=== PATIENT | male | born 1955 | race Caucasian/White ===

== ENCOUNTER 2019-08-22 08:58 | Day surgery (SDC) | payer MEDICARE, BC, SELFPAY ==
[2019-08-22] VITALS (11 sets, daily range): BP systolic 121–173; BP diastolic 61–88; PULSE 68–100; RESP 14–17; TEMP 36–36.8; O2SAT 92–100; BMI 27.3
--- NOTE | 2019-08-22 | IMM_PTH ---
PATIENT: JOSE ALVARADO LOC: [facility] [place] U#:[id number] AGE/SX: 63/M ROOM: RE08/22/[address]: Dr. Baron Vasquez MD : 1955 BED: DIS: 08/23/2019 SPEC #: [id number] RECD: 08/24/19 10:22 STATUS: YESSICA REKen #: [id number] BEATRIZ: 08/22/19 00:[address]: Baron Vasquez DEPT: IMMUNOHISTOCHEMISTRY RECD BY: Josefina Joaquin ENTERED: 08/24/19 10:22 SP TYPE: IMMUNO OTHR DR: Dr. Reinaldo Go MD Tissues: B - PROSTATE BIOPSY Procedures: 34BE12 (add) P40 (add) 34BE12 (initial) PHYSICIAN & INSTITUTION [place] [address] SPECIMEN INFORMATION: Tissue Source: B - Prostate tissue, TUR Clinical Info: Benign prostatic hyperplasia; urinary retention Specimen Number: [id number] B1-3 CPT code: 40828, 32386 x5 METHODOLOGY: Deparaffinized sections of prefer/formalin-fixed tissue or PAP/DQ stained slides are incubated with monoclonal/polyclonal antibodies/oligonucleotide probes. Localization is made via biotin free immunoperoxidase method. Appropriate controls are performed and reacted as expected. Results on target cell population are indicated in the following table: RESULTS: ANTIBODY / CLONE RESULT Block B1 P40 (BC28) negative 34BE12 (34BE12) negative Block B2 P40 (BC28) negative 34BE12 (34BE12) negative Block B3 P40 (BC28) negative 34BE12 (34BE12) negative These tests were developed and their performance characteristics determined by [facility]. They may not have been cleared or approved by the U.S. Food and Drug Administration. The FDA has determined that such clearance or approval is not necessary. The above immunohistochemical/dualISH markers are ordered and reviewed by the Pathologist. INTERPRETATION: Prostate, transurethral resection: Adenocarcinoma. LOU:capo 08/27/19
--- NOTE | 2019-08-22 09:10 | RAD_ITS ---
STUDY: X-RAY CHEST REASON FOR EXAM: Male, 63 years old. PRE OP TODAY; -- H/O SMOKING TECHNIQUE: PA and lateral views of the chest. COMPARISON: None. FINDINGS: Scattered calcified granulomas. Hyperinflation. There is no demonstrated pleural abnormality. Normal size heart. Normal mediastinum and andrew. There is prominence of the pulmonary hilar arteries without peripheral pulmonary vascular congestion, suggesting pulmonary hypertension. There is atherosclerotic tortuosity of the aortic arch and descending thoracic aorta. There are diffuse degenerative changes of the visualized thoracic spine. Mild degree of the levoscoliosis. Normal visualized ribs, clavicles, and shoulders. There is no demonstrated abnormality of the visualized soft tissue structures of the upper abdomen. RAD/Chest PA and Lateral IMPRESSION: Hyperinflation. No acute abnormality is seen. Electronically Signed: Eliel Rodriguez, at 10:37 EDT , Service support ,
--- NOTE | 2019-08-22 09:32 | EKG12_ITS ---
Test Reason : PRE OP Blood Pressure : / mmHG Vent. Rate : 084 BPM Atrial Rate : 084 BPM P-R Int : 164 ms QRS Dur : 122 ms QT Int : 402 ms P-R-T Axes : 068 -67 049 degrees QTc Int : 475 ms Sinus rhythm with occasional Premature ventricular complexes and Fusion complexes Left axis deviation Abnormal ECG No previous ECGs available Confirmed by NURY DAVIS, LINA ([id number]), visual effects editor BERNADETTE REDD ([id number]) on 08/28/2019 2:28:09 PM Referred By: Baron Vasquez Confirmed By:LIAM ARRINGTON MD
[2019-08-22 09:51] LABS: Prothrombin Time Fingerstick 15.2 SEC (11.9-14.4)
[2019-08-22 09:57] LABS: Hematocrit 41.7 % (40-54); Hemoglobin 13.8 g/dL (13.0-16.5); Mean Corp Hgb Conc 33.1 g/dL (32-36); Mean Corpuscular Hgb 30.6 pg (27.0-32.0); Mean Corpuscular Volume 92.5 fL (80-94); Mean Platelet Vol. 9.6 fl (6.2-12.0); Platelet Count 230 K/mm3 (150-450); RBC Distribution Width SD 47.1 fl (35.1-43.9); Red Blood Count 4.51 M/mm3 (4.6-6.2); White Blood Count 12.3 K/mm3 (4.4-11.0)
[2019-08-22] MEDS: Lactated Ringers 1,000 ML 100 ML IV (10:02)
[2019-08-22 10:08] LABS: Anion Gap 5 (5-15); BUN 33 mg/dL (7-18); BUN/Creat Ratio 22.9 RATIO (10-20); Calcium,Total 9.2 mg/dL (8.5-10.1); Chloride 104 mmol/L (98-107); Creatinine, Serum 1.44 mg/dL (0.70-1.30); EST Glomerular Filtration Rate 52 mL/min (>60); Est Glom Filt Rate - Afr Amer 63 mL/min (>60); Estimated Creatinine Clearance 56.13 ml/min; Glucose 89 mg/dL (74-106); Potassium 4.8 mmol/L (3.5-5.1); Sodium Level 139 mmol/L (136-145)
--- NOTE | 2019-08-22 11:25 | PROSB_PTH ---
PATIENT: JOSE ALVARADO LOC: [facility] [place] U#:[id number] AGE/SX: 63/M ROOM: RE08/22/[address]: Dr. Baron Vasquez MD : 1955 BED: DIS: 08/23/2019 SPEC #: [id number] RECD: 08/23/19 07:40 STATUS: YESSICA RENZO #: [id number] BEATRIZ: 08/22/19 11:[address]: Baron Vasquez DEPT: SURGICAL PATHOLOGY RECD BY: Pierre Fierro ENTERED: 08/23/19 11:25 SP TYPE: PROST BX OTHR DR: Dr. Reinaldo Go MD Tissues: A - Prostate, NOS B - Prostate, NOS Procedures: Surgery Specimen Level IV HEADER OPERATION: Transurethral resection prostate with Olympus PRE-OP DIAGNOSIS: Benign prostatic hyperplasia; urinary retention TISSUE SUBMITTED: A - Finger-guided prostate biopsy, B - Prostate tissue MICROSCOPIC DIAGNOSIS A. Prostate, core biopsy: A piece of benign prostatic tissue, predominantly consists of stromal tissue. Negative for malignancy. B. Prostate, TUR: Prostatic adenocarcinoma. See cancer summary below. SJ:capo 08/24/19 PROSTATE CANCER (TUR) SUMMARY: Procedure - Transurethral resection prostate (TURP) Histologic type - acinar adenocarcinoma Histologic grade (Hawthorne Pattern) - Grade group 1 (Hugh score 3+3=6) Intraductal carcinoma - not identified Tumor Quantitation (TUR specimens): Proportion (%) of prostatic tissue involved by tumor - <1% Number of positive chips - 4 Total number of chips - ~40 Periprostatic fat invasion - not applicable Seminal vesicle invasion - not applicable Lymphvascular invasion - not identified Perineural invasion - not identified Additional pathologic findings - - benign prostatic hyperplasia, glandular and stromal type. - chronic inflammation. Treatment effect - not applicable The above summary is in compliance with [employer] [place] (CAP) Cancer Protocols Checklist and [place] Joint Committee on Cancer (AJCC), Staging Manual, 8th Ed. COMMENT Immunohistochemistry ([id number]) supports the above diagnosis. Case has been reviewed in consultation with Dr. Kramer who concurs with the above diagnosis. IDC:[email or web address] MICROSCOPIC DESCRIPTION Slides are reviewed. GROSS DESCRIPTION A - Received in fixative is one container labeled with the patient's name and designated finger-guided prostate biopsy. The specimen consists of one elongated fragment of light saavedra-white soft tissue measuring 1 cm in length and 0.1 cm in diameter. The specimen is totally submitted in one cassette. B - Received is one container labeled with the patient's name and designated prostate tissue. The specimen consists of multiple irregular fragments of pink-saavedra, rubbery, soft tissue that in aggregate weigh 4.2 gm and measure in aggregate 7 x 5 x 0.2 cm. The entire specimen is submitted in four cassettes. / AM:capo 08/23/19 TC:0 CPT: 19932 x2
[2019-08-22] MEDS: Cefazolin 2 GM in 0.9% Normal Saline 100 ML IV (11:32)
--- NOTE | 2019-08-22 11:33 | DCINST_ITS ---
Discharge Diet: Light diet - advance as tolerated Discharge Activity: Return to Normal Activity Return to work on:: 09/05/19September shower in (days): 1 Lifting Restrictions: no lifting. Call your doctor if your incision/area has: Sudden Increased Bleeding Call your doctor if you observe: Fever of 101 or Higher Suture Line Care: Avoid Pulling/Pushing, Avoid Pinching/Bending Allergies/Adverse Reactions: Allergies rhubarb Allergy (Verified 08/22/19 09:33) Rash Medications to take at Discharge Glucosam/Jude-Msm1/C/Vinny/Bosw [Osteo Bi-Flex Caplet] 1 ea PO DAILY 08/20/19 Mecobalamin [B12 Active] 1,000 mcg PO DAILY 08/20/19 Warfarin [Coumadin ([facility])] 5 mg PO MOWEFR 08/20/19 Warfarin [Coumadin ([facility])] 7.5 mg PO SUTUTHSA 08/20/19 Ciprofloxacin [Cipro] 500 mg PO BID #14 tab 08/22/19 Hydrocodone/Acetaminophen [[place] 5-325 Tablet] 1 each PO Q4H PRN PRN 5 Days #14 tablet 08/22/19 The following prescriptions were given: Ciprofloxacin [Cipro] 500 mg PO BID #14 tab Transmission Status: Pending to [facility] Hydrocodone/Acetaminophen [[place] 5-325 Tablet] 1 each PO Q4H PRN PRN 5 Days #14 tablet PRN Reason: Pain Score 1-10/10 Transmission Status: Sent to [facility] Primary Care Physician: Reinaldo Go [Primary Care Provider] - Test Results: Test results from this visit will be discussed in further detail at your follow- up appointment, if applicable. Please Follow Up With: Baron Vasquez MD When: in 2 weeks, please call to make an appointment.
--- NOTE | 2019-08-22 11:34 | PCM.HP.STD ---
Problem List (1) BPH with urinary obstruction Status: Acute (2) Urinary retention due to benign prostatic hyperplasia Status: Acute History of Present Illness Date of Admission: 08/22/19 Chief Complaint: Urinary retention elevated PSA bilateral hydronephrosis BPH and obstruction The patient is a 63 year old male who went to the emergency room with sudden onset of retention of urine he has a catheter in place. He was found to have bilateral hydronephrosis elevated renal function. We talked about options of management and he wants to proceed with surgery to alleviate his obstruction also the catheter is causing pain or discomfort on a daily basis would like to get rid of the catheter he understand that surgery may not guarantee he will be able to urinate he may need to do self intermittent catheterization and he is willing to learn this if necessary. Working to proceed with transurethral resection of the prostate also can do a biopsy to rule out cancer Past Medical History Allergies rhubarb Allergy (Verified 08/22/19 09:33) Rash Home Medications: Ambulatory Orders Medication Instructions Recorded Glucosam/Jude-Msm1/C/Vinny/Bosw 1 ea PO DAILY 08/20/19 [Osteo Bi-Flex Caplet] Mecobalamin [B12 Active] 1,000 mcg PO DAILY 08/20/19 Warfarin [Coumadin ([facility])] 5 mg PO MOWEFR 08/20/19 Warfarin [Coumadin ([facility])] 7.5 mg PO SUTUTHSA 08/20/19 Ciprofloxacin [Cipro] 500 mg PO BID #14 tab 08/22/19 Hydrocodone/Acetaminophen [[place] 1 each PO Q4H PRN PRN 5 Days #14 08/22/19 5-325 Tablet] tablet Smoking Status: Current every day smoker Tobacco Use: Cigarettes Review of Systems Constitutional: Denies: Chills, Fever, Weight Change HEENT: Denies: Head Aches, Sinus Congestion, Sinus Drainage Cardiovascular: Denies: Chest Pain, Palpitations Respiratory: Denies: Cough, Shortness of breath at rest, Sputum production Gastrointestinal: Denies: Abdominal Pain, Nausea, Vomiting Genitourinary: Denies: Dysuria Musculoskeletal: Denies: Joint Pain, Joint Tenderness Skin: Denies: Rash, Wounds Neurological: Denies: Numbness, Tingling, Focal weakness Psychiatric: Denies: Anxiety, Depression, Homicidal Ideations, Suicidal Ideations Hematologic/ Lymphatic: Denies: Easy Bruising, Easy Bleeding VTE Information - Inpt Only VTE Present on Admission: No VTE Mechan Device Prophylaxis: SCD's Patient Problems: Active and Suspected Problems BPH with urinary obstruction (Acute) Urinary retention due to benign prostatic hyperplasia (Acute) - Physical Exam Vitals/I&O's: Vital Signs Temp Pulse Resp BP Pulse Ox 97.4 F L 80 17 126/75 H 100 08/22/19 09:40 08/22/19 09:40 08/22/19 09:40 08/22/19 09:40 08/22/19 09:40 Oxygen Delivery Method Room Air Weight: 91.7 kg Body Mass Index (BMI) 27.3 General: Alert, Oriented x3, Cooperative HEENT: Atraumatic, PERRLA, EOMI, Normocephalic Neck: Supple, No JVD, Negative Carotid Bruits Lungs: Clear to auscultation, Normal air movement Cardiovascular: Regular rate, No murmurs Abdomen: Bowel Sounds Present, Soft, Non Tender Extremities: No edema, Capillary Refill Less than 3 Seconds Skin: No rashes, No breakdown Musculoskeletal: No Tenderness to Palpation of Joints or Extremities Neurological: Cranial nerves II-XII grossly intact Psych/Mental Status: Normal Affect, Appropriate Laboratory Results 08/22/19 09:40: POC PT 15.2 H, INR 1.20 08/22/19 09:48: WBC 12.3 H, RBC 4.51 L, Hgb 13.8, Hct 41.7, MCV 92.5, MCH 30.6, MCHC 33.1, RDW Std Deviation 47.1 H, RDW Coeff of Tina 14.0, Plt Count 230, MPV 9.6 08/22/19 09:48: Sodium 139, Potassium 4.8, Chloride 104, Carbon Dioxide 30.0, Anion Gap 5, BUN 33 H, Creatinine 1.44 H, Estim Creat Clear Calc 56.13, Est GFR (MDRD) Af Amer 63, Est GFR (MDRD) Non-Af 52 L, BUN/Creatinine Ratio 22.9 H, Glucose 89, Calcium 9.2 Current Medications Lactated Ringer's () 1,000 mls @ 100 mls/hr IV .Q10H JOANNA Last Admin: 08/22/19 10:02 Dose: 100 mls/hr Documented by: Assessment/Plan All Active Problems BPH with urinary obstruction (Acute) Urinary retention due to benign prostatic hyperplasia (Acute) 63-year-old male with obstruction of his bladder is got bilateral hydronephrosis we will proceed with a TURP prostate biopsy is concerned that he may have cancer. Understands is possible the surgery may not work he may have to use intermittent catheterization as an option in the long run. Essential Procedure Criteria Procedure Essential: Yes Criteria Note: On 08/07/2019 the [facility] ([facility]) Public Order signed by [facility] Director Esther Mc M.D., regarding the Management of Non-Essential Surgeries and Procedures for the purpose of preserving Personal Protective Equipment (PPE) and critical hospital capacity and resources within [place] went into effect as of 08/08/2019 at 5:00PM. According to the [facility] Public Order: This action will remain in full force and effect until the State of Emergency declared by the Governor no longer exists or the Director of the [facility] rescinds or modifies this Order.. This [facility] order stated all non-essential or elective surgeries and procedures that utilize PPE should be delayed unless there is undue risk to the current or future health of a patient. After reviewing the aforementioned [facility] Public Order and the patients clinical case, I have determined that the scheduled procedure meets the criteria to go forward. Risk to Patient if Procedure Delayed: Threat of permanent dysfunction of an extremity or organ system - Bladder dysfunction
--- NOTE | 2019-08-22 12:26 | PCM.OPRPT ---
Problem List (1) BPH with urinary obstruction Status: Acute (2) Urinary retention due to benign prostatic hyperplasia Status: Acute Report of Operation Date of Procedure: 08/22/19 Pre-Operative Diagnosis: BPH with obstruction urinary retention prostate nodule Post-Operative Diagnosis: Same Surgery/Procedure Performed:: Trans-urethral resection of the prostate, transrectal biopsy of the prostate. Description of Surgical Findings:: Patient is a male patient with a history of obstruction of the prostate with enlargement of the prostate, he also has bilateral hydronephrosis a prostate nodule on exam is concerned that he may have prostate cancer with obstruction he is failed medical therapy and is currently with a catheter desires to have intervention so he can resume normal urination.. On prior examination the prostate is enlarged. He has been found to have outlet obstruction causing significant symptoms. We discussed the options of management for his prostate condition including laser surgery, office-based procedures, observation, management with a catheter long-term. We talked about the outcomes potential side effects of these different management options with surgery we talked about the risk of bleeding from the prostate, risk risk of recurrent bleeding, we talked about the risk of retrograde ejaculation and possible sexual dysfunction with surgery. We also discussed the risk of anesthesia including pulmonary embolism, blood clots, cardiac complications pulmonary complications. All the patient's questions were answered and working to proceed with a transurethral resection of the prostate with a bipolar Olympus resectoscope. Patient was taken back to the operating room after smooth induction of anesthesia by the anesthesia team he was given IV antibiotics, and also had SCDs for DVT prophylaxis. He was put on the table supine in a comfortable position and underwent general anesthesia. The legs were then positioned in dorsolithotomy position in stirrups making sure that all pressure points were padded. The penis and testicles perineum and lower pelvis were then prepped and draped in the usual sterile fashion. I then performed a cystoscopy using a well-lubricated 21 Romanian rigid cystourethroscope to inspect the prostate and the bladder and identify the right and left ureteral orifices. I then went back into the prostate with a resectoscope with a derek and started the resection first at the median lobe if there was any median lobe present, and then I started resecting the right lobe of the prostate starting at the 6 o'clock position working away to the 7 o'clock position all the way up to the 12 o'clock position on the prostate wall working all the way back to the verumontanum in order to open up the channel. I then used electrocautery to obtain hemostasis on the prostate. I then turned to the right side of the prostate and continued with the resection starting the 6 o'clock position working away to the 12 o'clock position working all way back to the verumontanum. I then obtained hemostasis. All the resection prostate chips were then removed from the bladder using Ellik evacuator. I checked the bladder and the right and left ureteral orifice were patent and open and were uninjured after the procedure. I then inspected the apical tissue made sure that there is no obstructing or flapping tissue in the apex. I performed a flow test and the patient had a wide open flow. I looked back inside the bladder through the urethra there was no scar tissues or abnormalities along the course of the urethra no injuries or tears, the sphincter was intact and the patient had an open channel from the verumontanum all the way to the bladder neck with good hemostasis. I then placed a double glove on my hand and used a guide through the double glove and did a transrectal palpation of the prostate and then through the guide I did prostate biopsies which were sent off as specimen. I then placed a continuous 22fr [address] muñiz catheter within the bladder and started irrigation the urine was fairly clear with some light pink urine. Patient's anesthetic was reversed and he was taken back to the PACU in stable condition. Type of Anesthesia:: General Drains: 3 way muñiz - Admit VTE Documentation VTE Present on Admission: No VTE Mechan Device Prophylaxis: SCD's
[2019-08-22] MEDS: Ondansetron 4 MG/2 ML Vial IV (13:48)
[2019-08-22] MEDS: 0.9% Normal Saline 1,000 ML 75 ML IV (20:13)
[2019-08-22] MEDS: Ciprofloxacin 500 MG Tablet PO (22:46)
[2019-08-22] MEDS: Docusate Sodium 100 MG Capsule PO (22:46)
[2019-08-23] MEDS: Acetaminophen 325 MG Tablet PO (02:55)
[2019-08-23 09:41] VITALS: BP 124/70; PULSE 62; RESP 18; TEMP 36.9; O2SAT 94
[2019-08-23 09:42] VITALS: RESP 18
[2019-08-23] MEDS: 0.9% Normal Saline 1,000 ML 75 ML IV (09:58)
[2019-08-23] MEDS: Ciprofloxacin 500 MG Tablet PO (09:59)
[2019-08-23] MEDS: Pantoprazole Sodium 40 MG Tablet PO (09:59)
[2019-08-23] MEDS: Docusate Sodium 100 MG Capsule PO (09:59)
--- NOTE | 2019-08-23 12:43 | NURSING ---
pt states still unable to void states attempt x2. discussed fluid intake. discussed conversation to give pt 6hrs since time of muñiz removed to void then replace muñiz catheter (1600) pt up ad nava, gait steady. fresh icewater given. denies all further needs.
[2019-08-23 13:56] VITALS: BP 179/93; PULSE 70; RESP 18; TEMP 36.6; O2SAT 97
== END 2019-08-23 12:02 | disposition home or self-care (01) ==
LOC: SDC 09:03 → AC 09:06 → PCU 08-23 09:43
PROVIDERS: Anesthesiology; PCP Family Medicine; Referring Provider Urology; Visit Provider Urology
PROC: (CPT 52601; principal; 2019-08-22 11:15)
DX: N40.1 Benign prostatic hyperplasia with lower urinary tract symptoms (principal); N13.8 Other obstructive and reflux uropathy; Z86.718 Personal history of other venous thrombosis and embolism; K21.9 Gastro-esophageal reflux disease without esophagitis; Z79.01 Long term (current) use of anticoagulants; R33.8 Other retention of urine; N13.30 Unspecified hydronephrosis; F17.210 Nicotine dependence, cigarettes, uncomplicated; C61 Malignant neoplasm of prostate
CPT/HCPCS: 52601; 55700; 36416; 71046; 80048; 85027; 85610; 88305; 88341; 88342; 93005; 99251; 99406; J7030; J7120; G0463; J2405

== ENCOUNTER → 2019-12-03 10:04 | Outpatient (CLI) | payer MEDICARE, BC, SELFPAY ==
[2019-08-22 13:27] VITALS: BMI 27.3
[2019-12-03 10:53] LABS: PSA,Total- Diagnostic 0.43 ng/mL (0.0-4.0)
== END ==
PROVIDERS: PCP Family Medicine; Referring Provider Urology; Visit Provider Urology
DX: C61 Malignant neoplasm of prostate (principal)
CPT/HCPCS: 36415; 84153

== ENCOUNTER → 2020-12-11 10:46 | Outpatient (CLI) | payer MEDICARE, BC, SELFPAY ==
[2019-08-22 13:27] VITALS: BMI 27.3
== END ==
PROVIDERS: PCP Family Medicine; Referring Provider Urology; Visit Provider Urology
DX: R35.0 Frequency of micturition (principal)
CPT/HCPCS: 87086; 87088; 87186

== ENCOUNTER 2021-08-04 15:07 | Outpatient (CLI) | payer MEDICARE, BC, SELFPAY ==
--- NOTE | 2021-08-04 15:13 | CT_ITS ---
STUDY: LOW DOSE CT LUNG CANCER SCREENING REASON FOR EXAM: Male, 65 years old. History of tobacco dependency. RADIATION DOSAGE (If Supplied By Facility): CTDIvol = ( 2.39 ) mGy, DLP = ( 82.80 ) mGycm TECHNIQUE: No contrast was administered. Low dose technique was utilized (average mAS-38 and kVp 120). 1.25 mm axial source images with a slice interval of 1.25-mm were reconstructed in lung windows. 2.5 mm axial source images with a slice interval of 2.5-mm were reconstructed in lung windows. 5.0 mm axial source images with a slice interval of 5.0-mm were reconstructed in soft tissue windows. Nodule measured using lung windows on PACS and/or independent workstation with automated measurement of minimum and maximum diameter. Nodule measurement reported as average diameter rounded to the nearest whole number. Growth is defined as an increase ins size of greater than 1.5 mm. COMPARISON: Chest, 08/22/2019 NODULES: Nodule #: 1 Density: Solid Lung location: Right upper lobe: 0.2 cm from pleura Location in series: Series Number: 2 Image: 37 Size - D1 x D2 mm: 2 x 2 mm: 2 mm average diameter Margin: Smooth Shape: Round Calcification: No Fat: No Temporal comparison: None Nodule #: 2 Density: Solid Lung location: Right upper lobe: 0.2 cm from pleura Location in series: Series Number: 2 Image: 67 Size - D1 x D2 mm: 3 x 2 mm: 3 mm average diameter Margin: Smooth Shape: Oval Calcification: No Fat: No Temporal comparison: None Nodule #: 3 Density: Solid Lung location: Right upper lobe: 0.2 cm from pleura Location in series: Series Number: 2 Image: 77 Size - D1 x D2 mm: 3 x 1 mm: 2 mm average diameter Margin: Small Shape: Linear Calcification: No Fat: No Temporal comparison: None Nodule #: 4 Density: Solid Lung location: Right upper lobe: 2 cm from pleura Location in series: Series Number: 2 Image: 104 Size - D1 x D2 mm: 0.7 x 0.9 mm: 8 mm average diameter Margin: Irregular Shape: Round Calcification: Yes Fat: No Temporal comparison: Stable Nodule #: 5 Density: Solid Lung location: Right lower lobe: 2 mm cm from pleura Location in series: Series Number: 2 Image: 1:15 Size - D1 x D2 mm: 7 x 7 mm: 7 mm average diameter Margin: Lobulated Shape: Round Calcification: No Fat: No Temporal comparison: None Nodule #: 6 Density: Solid Lung location: Right lower lobe: 2.1 cm from pleura Location in series: Series Number: 2 Image: 132 Size - D1 x D2 mm: 15 x 10 mm: 13 mm average diameter Margin: Lobulated Shape: Oval Calcification: No Fat: No Temporal comparison: None Nodule #: 7 Density: Solid Lung location: Left lower lobe: 0.7 cm from pleura Location in series: Series Number: 2 Image: 155 Size - D1 x D2 mm: 4 x 3 mm: 4 mm average diameter Margin: Smooth Shape: Round Calcification: No Fat: No Temporal comparison: None Nodule #: 8 Density: Sono Lung location: Left lower lobe: 0.3 cm from pleura Location in series: Series Number: 2 Image: 155 Size - D1 x D2 mm: 3 x 2 mm: 3 mm average diameter Margin: Smooth Shape: Oval Calcification: No Fat: No Temporal comparison: None Nodule #: 9 Density: Solid Lung location: Left lower lobe: Pleural-based Location in series: Series Number: 2 Image: 186 Size - D1 x D2 mm: 4 x 4 mm: 4 mm average diameter Margin: Smooth Shape: Round Calcification: No Fat: No Temporal comparison: None Nodule #: 10 Density: Solid Lung location: Left lower lobe: Pleural based Location in series: Series Number: 2 Image: 188 Size - D1 x D2 mm: 6 x 2 mm: 4 mm average diameter Margin: Smooth Shape: Oval Calcification: No Fat: No Temporal comparison: None Total lung nodules (excluding granulomas): 9 Emphysema: There is diffuse emphysematous changes of lungs with scattered bulla abdomen linear scarring at the lung bases. Endobronchial lesion: None Aorta: Normal Coronary arteries: Minimal coronary artery calcifications. Heart: Normal Pulmonary artery: Normal Mediastinal nodes: No mediastinal lymphadenopathy. Calcified lymph nodes are seen in the right hilum. Other chest and abdominal findings: Degenerative changes of the thoracic spine. CT/Low Dose CT Lung Screening IMPRESSION: Lung-RADS category 4A - Screening at 3 months with LDCT or evaluation with PET/CT may be used. IMPORTANT NOTES FOR USE: ACR Lung-RADS Version 1.1 Assessment Categories Release Date: 2018 Category: Coded 0-4 bases on nodule(s) with highest degree of suspicion. Negative screen is defined as categories 1 and 2; a positive screen is defined as categories 3 and 4. Category 3 and 4A nodules that are unchanged on interval CT should be coded as category 2, and individuals returned to screening in 12 months. Category 4X: Category 3 or 4 nodules with additional imaging findings that increase the suspicion of lung cancer, such as spiculation, GGN that doubles in size in 1 year, enlarged lymph notes, etc. Category Modifiers: S (significant finding unrelated to lung cancer) Electronically Signed: Williams Sanches DO at 16:32 EDT Reading Location ID and State: [address] [place] [address] Tel [phone], Service support ,
== END 2021-08-04 23:59 | disposition home or self-care (01) ==
LOC: CT 15:11
PROVIDERS: PCP Family Medicine; Referring Provider Internal Medicine Critical Care Medicine; Visit Provider Internal Medicine Critical Care Medicine
DX: F17.211 Nicotine dependence, cigarettes, in remission (principal)
CPT/HCPCS: 71271

== ENCOUNTER 2021-08-05 08:19 | Outpatient (CLI) | payer MEDICARE, BC, SELFPAY ==
--- NOTE | 2021-08-05 14:03 | PFTCOMP ---
COMPLETE PULMONARY FUNCTION TEST INTERPRETATION Brief HPI: Patient is a 65 year old male, currently under the care of Dr. Go, who presents to [facility] for complete pulmonary function tests secondary to diagnosis of dyspnea. Respiratory therapist reports good effort and reproducible results. Interpretation: Forced expiration spirometry shows a severe large airways obstructive ventilatory defect with an FEV1 of 44% predicted. There is a significant bronchodilator response in FEV1 by strict ATS criteria. Spirograms are of good quality and plateau slowly, indicating slowly emptying areas of the lungs. The respiratory flow volume loop shows decreased expiratory flow rates at all lung volumes consistent with airway obstruction. Lung volumes by body plethysmography show a normal total lung capacity at 6.97 L, 99% predicted. All other lung volumes are within normal limits. Diffusion capacity by carbon monoxide is decreased at 61% predicted. The airway resistance is elevated. No previous pulmonary function tests were available for review. Impression: Partially reversible severe large airways obstructive ventilatory defect with a symmetric reduction diffusing capacity
== END 2021-08-05 23:59 | disposition home or self-care (01) ==
LOC: PSN 08:21
PROVIDERS: PCP Family Medicine; Referring Provider Internal Medicine Critical Care Medicine; Visit Provider Internal Medicine Critical Care Medicine
DX: R06.02 Shortness of breath (principal); F17.211 Nicotine dependence, cigarettes, in remission
CPT/HCPCS: 94060; 94726; 94729

== ENCOUNTER 2021-08-18 12:48 | Outpatient (CLI) | payer MEDICARE, BC, SELFPAY ==
[2021-08-18 13:00] VITALS: PULSE 72; PULSE 76; PULSE 81; PULSE 82; PULSE 84; PULSE 87; PULSE 90; PULSE 91; O2SAT 90; O2SAT 92; O2SAT 94; O2SAT 97; O2SAT 98
--- NOTE | 2021-08-18 14:53 | WT_ITS ---
PSN 6 Minute Walk Test 6 Minute Walk Test 6 Minute Walk Test: 6 Minute Walk Test PSN:6-Minute Walk Test Start: 08/18/21 13:08 Freq: Status: Active Protocol: [id number] Document 08/18/21 13:00 [facility] (Rec: 08/18/21 13:12 [facility] [id number]) 6 Minute Walk Test Date Performed 08/18/21 Time Performed 13:00 Height 6 ft Weight: 95.254 kg Weight in Pounds 210.[address]: Dr Go Assistive device used: None Pre-test Oxygen Delivery Method Room Air Pulse Ox (%) 98 Pulse Rate (60-100 beats/min) 72 Dyspnea Niyah Scale (0-10) 0.5 Exertion Niyah Scale (6-20) 6 1st minute Oxygen Delivery Method Room Air Pulse Ox (%) 94 Pulse Rate (60-100 beats/min) 81 2nd minute Oxygen Delivery Method Room Air Pulse Ox (%) 94 Pulse Rate (60-100 beats/min) 84 3rd minute Oxygen Delivery Method Room Air Pulse Ox (%) 92 Pulse Rate (60-100 beats/min) 82 4th minute Oxygen Delivery Method Room Air Pulse Ox (%) 92 Pulse Rate (60-100 beats/min) 87 5th minute Oxygen Delivery Method Room Air Pulse Ox (%) 90 Pulse Rate (60-100 beats/min) 91 6th minute Oxygen Delivery Method Room Air Pulse Ox (%) 90 Pulse Rate (60-100 beats/min) 90 Dyspnea Niyah Scale (0-10) 2 Exertion Niyah Scale (6-20) 11 Post-test Oxygen Delivery Method Room Air Pulse Ox (%) 97 Pulse Rate (60-100 beats/min) 76 Full Laps Walked 19 Partial Lap, Number of Tiles Walked 17 Total Distance Walked (ft) 1138 Interpretation Interpretation: The patient was noted to be 98% on room air at rest, but did desaturate as low as 90% with ambulation. Patient experienced no significant tachycardia. In total, the patient traveled 1138 feet over the course of 6 minutes on room air with no assist devices or breaks. These findings are consistent with a respiratory limitation exercise tolerance. Recommendations Recommendations: No supplemental oxygen is indicated at this time. However, patient will need to be followed closely given level of desaturation.
== END 2021-08-18 23:59 | disposition home or self-care (01) ==
LOC: PSN 12:48
PROVIDERS: PCP Family Medicine; Referring Provider Internal Medicine Critical Care Medicine; Visit Provider Internal Medicine Critical Care Medicine
DX: R06.02 Shortness of breath (principal); F17.211 Nicotine dependence, cigarettes, in remission
CPT/HCPCS: 94618

== ENCOUNTER → 2021-09-16 | Outpatient (CLI) | payer MEDICARE, BC, SELFPAY ==
--- NOTE | 2021-09-16 09:30 | PET_ITS ---
STUDY: WHOLE BODY PET/CT REASON FOR EXAM: Male, 65 years old. Lung nodule RADIATION DOSAGE (If Supplied By Facility): CTDIvol = ( 7.22 ) mGy, DLP = ( 668.03 ) mGycm. Individualized dose optimization techniques were used for this CT.? TECHNIQUE: Whole-body, multiplanar PET study performed after administration of 10.4 mCi of F-[address] FDG[address] obtained COMPARISON: None. FINDINGS: No suspicious PET activity identified to suspect a metabolically active process. Normal physiologic activity noted in the brain, salivary glands, heart, liver, spleen, GI and systems. The noncontrasted CT scan does not show evidence of abnormality in the visualized brain parenchyma. No suspicious adenopathy in the soft tissues of the neck. No airway narrowing or deviation. No suspicious axillary, mediastinal or perihilar adenopathy on tavares show chronic interstitial changes. There is a calcified granuloma in the right middle lobe and subtle nodular densities in the right lower lobe but none of them show significant PET activity. No suspicious solid organ abnormality, there are nonobstructing right renal stones. No suspicious mesenteric or retroperitoneal adenopathy. There is a right inguinal hernia containing bowel loops which extends down into the scrotum. Bony structures show degenerative change PET/PET/CT Tumor Base -Thigh Init IMPRESSION: No suspicious increased activity to suspect a metabolically active process. Electronically Signed: Omkar Kaplan MD at 12:04 EDT ,
== END | disposition home or self-care (01) ==
LOC: ONC 09:30
PROVIDERS: PCP Family Medicine; Referring Provider Internal Medicine Critical Care Medicine; Visit Provider Internal Medicine Critical Care Medicine
DX: R91.8 Other nonspecific abnormal finding of lung field (principal)
CPT/HCPCS: 78814; 78815; A9588

== ENCOUNTER → 2022-03-05 | Outpatient (CLI) | payer MEDICARE, BC, SELFPAY ==
--- NOTE | 2022-03-05 13:42 | CT_ITS ---
STUDY: CT CHEST WITHOUT CONTRAST REASON FOR EXAM: Male, 66 years old. 1.3 cm in size and was located in the right lower RADIATION DOSAGE (If Supplied By Facility): CTDIvol = ( 15.96 ) mGy, DLP = ( 626.23 ) mGycm TECHNIQUE: Transaxial imaging was performed without the administration of intravenous contrast material. Multiplanar coronal and sagittal images were reformatted. Individualized dose optimization techniques were used for this CT. COMPARISON: Comparison is made with prior study dated 08/04/2021. FINDINGS: CHEST Small benign-appearing bilateral axillary There is a 2.6 cm x 1.9 cm x 1.7 cm irregular nodular density in the anterior aspect of the lingular segment of the left upper lobe as seen on axial image #85 and coronal image #74. This is grown in size as compared to prior study. Biopsy recommended. There is a 1.4 cm x 0.8 cm irregular nodular density in the superior segment of the right lower lobe as seen on axial image #70 and coronal image #2012. The seen adjacent to areas of bronchiectasis. Densely calcified nodule is seen in the anterior aspect of the right upper lobe. Hyperinflation and emphysematous changes. There are calcifications of the coronary arteries. Normal mediastinum. Calcified right hilar lymph node. Normal unenhanced pulmonary arteries. Normal aorta arch and descending thoracic aorta. There are multi-level degenerative changes of the thoracic spine. Multiple calcified splenic granulomas. CT/Chest without Contrast IMPRESSION: Since prior study, there has been an increase in size of the previously seen right lower lobe nodule as well as the lingular nodule. Neoplastic process should be ruled out. Electronically Signed: Eliel Rodriguez MD at 10:00 EDT ,
== END | disposition home or self-care (01) ==
LOC: CT 13:41
PROVIDERS: PCP Family Medicine; Referring Provider Nurse Practitioner Acute Care; Visit Provider Nurse Practitioner Acute Care
DX: R91.8 Other nonspecific abnormal finding of lung field (principal)
CPT/HCPCS: 71250

== ENCOUNTER → 2022-08-31 | Outpatient (CLI) | payer MEDICARE, BC, SELFPAY ==
--- NOTE | 2022-08-31 | CYSPIN_PTH ---
PATIENT: JOSE ALVARADO [facility] U#:[id number] AGE/SX: 66/M ROOM: RE08/31/[address]: Dr. Baron Vasquez MD : [id number] BED: DIS: 08/31/2022 SPEC #: [id number] RECD: 08/31/22 15:00 STATUS: YESSICA REKen #: [id number] BEATRIZ: 08/31/22 00:[address]: Baron Vasquez DEPT: CYTOLOGY RECD BY: Lynn Vallecillo ENTERED: 09/01/22 10:51 SP TYPE: CYSPIN FL OTHR DR: Dr. Reinaldo Go MD Tissues: Urine Procedures: Pap Stain (control) Special Stain Group II Cytospin Fluid HEADER OPERATION: Not noted PRE-OP DIAGNOSIS: Gross hematuria TISSUE SUBMITTED: Urine for cytology DIAGNOSIS CYTOLOGY Urine for cytology (cytospin): Negative for high-grade urothelial carcinoma ([facility]GUC), Patricia Cytology Category II. Marked acute inflammation. See comment. SJ:capo 09/01/2022 COMMENT Correlation with clinical findings and appropriate follow up are necessary. Repeat cytology is suggested if clinically indicated after treatment of inflammation. The [facility] System for urine cytology diagnostic categorization was used in the evaluation of this case. CYTOLOGY STUDY Slides are reviewed. CYTOLOGY GROSS Received is 80 ml of cloudy yellow fluid labeled with the patient's name and and designated per the requisition as urine. Submitted for cytology preparation. / capo 09/01/2022 TC:2 CPT: 88078
[2022-08-31 17:12] LABS: Cytology, Body Fluid / CSF SEE PATHOLOGY REPORT
== END | disposition home or self-care (01) ==
LOC: LABSPEC 16:54
PROVIDERS: PCP Family Medicine; Referring Provider Urology; Visit Provider Urology
DX: R31.0 Gross hematuria (principal)
CPT/HCPCS: 88108; 88313

== ENCOUNTER → 2022-09-08 | Outpatient (CLI) | payer MEDICARE, BC, SELFPAY ==
--- NOTE | 2022-09-08 14:37 | CT_ITS ---
ACR Level 3 findings have been noted. An addendum which confirms receipt of the report will follow. INDICATION: HYDRONEPHROSIS EXAMINATION: CT Abdomen And Pelvis W/O Contrast Injection TECHNIQUE: Helically acquired images were obtained of the abdomen and pelvis without the use of IV contrast. A radiation dose optimization technique was used for this scan. Oral contrast: None. COMPARISON: None FINDINGS: Evaluation of the solid organs and vascular structures is limited without intravenous contrast. Visualized lung bases: Unremarkable Liver: Unremarkable Gallbladder: Surgically absent. Spleen: Multiple splenic granulomas. Pancreas: Unremarkable Adrenal Glands: Unremarkable Kidneys: 1.4 cm nonobstructing stone in the right lower renal pole. Mild left hydroureteronephrosis with no obstructing stone or mass seen. Vasculature: Moderate aortoiliac atherosclerotic disease. GI Tract: Unremarkable Lymphadenopathy: None Peritoneum: No ascites. Bladder: Circumferential bladder wall thickening with surrounding mesenteric fat stranding concerning for cystitis. 1 cm stone in the prostatic urethra. Reproductive organs: Unremarkable Bones/Soft tissues: There are diffuse degenerative changes of the spine. CT/Abdomen/Pelvis without Cont IMPRESSION: Mild left hydroureteronephrosis with a partially obstructing stone in the prostatic urethra measuring 1 cm. Findings also suspicious for cystitis. 1.4 cm nonobstructing stone in the right lower renal pole. Electronically Signed: Scot Gilliam MD at 17:54 EDT ,
== END | disposition home or self-care (01) ==
LOC: CT 14:36
PROVIDERS: PCP Family Medicine; Referring Provider Urology; Visit Provider Urology
DX: N13.30 Unspecified hydronephrosis (principal)
CPT/HCPCS: 74176

== ENCOUNTER → 2022-09-30 | Outpatient (CLI) | payer MEDICARE, BC, SELFPAY | END | disposition home or self-care (01) | LOC: LABSPEC 16:34 | PROVIDERS: PCP Family Medicine; Referring Provider Urology; Visit Provider Urology | DX: R31.9 Hematuria, unspecified (principal) | CPT/HCPCS: 87077; 87086; 87088; 87186 ==